=== PATIENT | female | born 1970 | race Caucasian/White ===

== ENCOUNTER → 2016-06-02 | Outpatient (CLI) | payer OTHER ==
[~2016-06-02] MED LIST: LANSO30 PO/TUBE; PROZ40CA PO
[2016-06-02 17:29] LABS: ALKALINE PHOSPHATASE 81 U/L (45-117); ALT (GPT) 25 U/L (10-53); ANION GAP 6 MEQ/L (5-15); AST (GOT) 16 U/L (15-37); BICARBONATE 28.6 MEQ/L (21.0-32.0); BLOOD UREA NITROGEN 12 MG/DL (7-18); CHLORIDE 105 MEQ/L (98-107); GLOMERULAR FILTRATION RATE 62 ML/MIN (>89); HDL CHOLESTEROL 38.4 MG/DL (40.0-60.0); LDL CHOLESTEROL 47 MG/DL (0-99); POTASSIUM 3.6 MEQ/L (3.5-5.1); SODIUM (NA) 140 MEQ/L (136-145); TOTAL BILIRUBIN ADULT 0.2 MG/DL (0.2-1.0)
[2016-06-02 19:06] LABS: HEMOGLOBIN A1a 1.2 %; HEMOGLOBIN A1b 0.9 %; HEMOGLOBIN Ao 84.7 %; HEMOGLOBIN LA1C 2.1 %; HEMOGLOBIN P3 3.7 %
== END ==
LOC: PLAB 14:01
PROVIDERS: ATTEND Internal Medicine
DX: E11.9 Type 2 diabetes mellitus without complications (principal)
CPT/HCPCS: 80053; 80061; 83036

== ENCOUNTER → 2016-12-23 | Outpatient (CLI) | payer OTHER ==
[2016-12-23 13:12] LABS: BLOOD, URINE NEG (NEG); GLUCOSE,URINE 1000 mg/dL (NEG); KETONE, URINE NEG (NEG); NITRITE,URINE NEG (NEG); PH, URINE 6.5 (5.0-8.5); SQUAMOUS EPITHELIAL CELL URINE <1 /hpf (0-5); URINE COLOR YELLOW (YELLW/STRAW)
[2016-12-23 13:13] LABS: COMMENT (UR) CULT NOT INDICATED; CULTURE IF INDICATED CULT NOT INDICATED
[2016-12-23 13:14] LABS: AUTOMATED NEUTROPHIL # 2.7 TH/MM3 (1.8-7.7); BASOPHIL % 0.8 % (0.0-2.0); EOSINOPHIL # 0.2 TH/MM3 (0-0.4); EOSINOPHIL % 3.3 % (0.0-4.0); HEMATOCRIT 41.9 % (35.0-46.0); HEMO FLAGS DIFF FINAL; LYMPH % 29.9 % (9.0-44.0); LYMPHOCYTE # 1.4 TH/MM3 (1.0-4.8); MEAN CELL VOLUME 88.6 FL (80.0-100.0); MEAN CORPUSCULAR HEMOGLOBIN 29.8 PG (27.0-34.0); MEAN CORPUSCULAR HGB CONC 33.6 % (32.0-36.0); MONO % 7.8 % (0.0-8.0); NEUT % 58.2 % (16.0-70.0); PLATELET COUNT 360 TH/MM3 (150-450); RED BLOOD COUNT 4.72 MIL/MM3 (4.00-5.30); RED CELL DISTRIBUTION WIDTH 13.8 % (11.6-17.2); WHITE BLOOD COUNT 4.7 TH/MM3 (4.0-11.0)
[2016-12-23 13:40] LABS: ANION GAP 7 MEQ/L (5-15); AST (GOT) 14 U/L (15-37); BLOOD UREA NITROGEN 12 MG/DL (7-18); CHLORIDE 106 MEQ/L (98-107); GLOMERULAR FILTRATION RATE 67 ML/MIN (>89); GLUCOSE,FASTING 100 MG/DL (74-99); POTASSIUM 4.5 MEQ/L (3.5-5.1); SODIUM (NA) 139 MEQ/L (136-145)
[2016-12-23 13:51] LABS: ALKALINE PHOSPHATASE 84 U/L (45-117); ALT (GPT) 24 U/L (10-53); HDL CHOLESTEROL 54.2 MG/DL (40.0-60.0); LDL CHOLESTEROL 99 MG/DL (0-99); TOTAL BILIRUBIN ADULT 0.3 MG/DL (0.2-1.0)
[2016-12-23 15:01] LABS: MICRO ALBUMIN RANDOM URINE RAW 8.4 MG/L (0.0-30.0)
[2016-12-23 16:50] LABS: HEMOGLOBIN A1a 1.2 %; HEMOGLOBIN A1b 0.9 %; HEMOGLOBIN Ao 84.9 %; HEMOGLOBIN LA1C 2.2 %; HEMOGLOBIN P3 3.7 %
== END ==
LOC: PLAB 08:38
PROVIDERS: ATTEND Internal Medicine
DX: E11.9 Type 2 diabetes mellitus without complications (principal); I10 Essential (primary) hypertension
CPT/HCPCS: 80053; 80061; 81001; 82043; 83036; 84443; 85025

== ENCOUNTER → 2017-06-16 | Outpatient (CLI) | payer OTHER ==
[~2017-06-16] MED LIST changes: +CLIN300C5 PO; +EMPA1TAB PO; +LIPI10TA PO
[2017-06-16 10:18] LABS: AUTOMATED NEUTROPHIL # 2.9 TH/MM3 (1.8-7.7); BASOPHIL % 0.6 % (0.0-2.0); EOSINOPHIL # 0.1 TH/MM3 (0-0.4); EOSINOPHIL % 2.8 % (0.0-4.0); HEMOGLOBIN 13.6 GM/DL (11.6-15.3); LYMPH % 30.5 % (9.0-44.0); LYMPHOCYTE # 1.5 TH/MM3 (1.0-4.8); MEAN CELL VOLUME 87.9 FL (80.0-100.0); MEAN CORPUSCULAR HEMOGLOBIN 29.1 PG (27.0-34.0); MEAN CORPUSCULAR HGB CONC 33.1 % (32.0-36.0); MEAN PLATELET VOLUME 7.7 FL (7.0-11.0); MONO % 7.5 % (0.0-8.0); MONOCYTE # 0.4 TH/MM3 (0-0.9); NEUT % 58.6 % (16.0-70.0); PLATELET COUNT 337 TH/MM3 (150-450); RED BLOOD COUNT 4.67 MIL/MM3 (4.00-5.30); RED CELL DISTRIBUTION WIDTH 13.7 % (11.6-17.2)
[2017-06-16 10:30] LABS: ALBUMIN 3.5 GM/DL (3.4-5.0); ALT (GPT) 24 U/L (10-53); AST (GOT) 20 U/L (15-37); BICARBONATE 25.8 MEQ/L (21.0-32.0); BLOOD UREA NITROGEN 13 MG/DL (7-18); CALCIUM 8.3 MG/DL (8.5-10.1); CHLORIDE 105 MEQ/L (98-107); CHOLESTEROL 147 MG/DL (120-200); CREATININE 0.84 MG/DL (0.50-1.00); GLOMERULAR FILTRATION RATE 73 ML/MIN (>89); GLUCOSE,FASTING 139 MG/DL (74-99); SODIUM (NA) 138 MEQ/L (136-145)
[2017-06-16 10:41] LABS: ALKALINE PHOSPHATASE 61 U/L (45-117); CHOLESTEROL/ HDL RATIO 3.55 RATIO; HDL CHOLESTEROL 41.4 MG/DL (40.0-60.0); LDL CHOLESTEROL 78 MG/DL (0-99); TOTAL BILIRUBIN ADULT 0.5 MG/DL (0.2-1.0); TOTAL PROTEIN 7.2 GM/DL (6.4-8.2); TRIGLYCERIDES 137 MG/DL (42-150)
[2017-06-17 21:11] LABS: HEMOGLOBIN A1C 5.7 % (4.3-6.0)
== END ==
LOC: PLAB 08:27
PROVIDERS: ATTEND Internal Medicine
DX: E11.9 Type 2 diabetes mellitus without complications (principal); E03.9 Hypothyroidism, unspecified; R53.83 Other fatigue
CPT/HCPCS: 36415; 80053; 80061; 83036; 84443; 85025

== ENCOUNTER 2017-06-21 18:49 | Emergency (ER) | payer OTHER ==
[~2017-06-21] VITALS: Ht 175.3 cm; Wt 90.4 kg
[~2017-06-21 18:49] MED LIST changes: -CLIN300C5 PO; -EMPA1TAB PO; -LIPI10TA PO
[2017-06-21 19:09] VITALS: BP 124/70; PULSE 98; RESP 16; TEMP 98.7; O2SAT 96
[2017-06-21] MEDS ORDERED: LIPI10TA PO (19:16)
[2017-06-21] MEDS ORDERED: PROZ40CA PO (19:16)
[2017-06-21] MEDS ORDERED: EMPA1TAB PO (19:16)
[2017-06-21] MEDS ORDERED: CLINDAMYCIN 150 MG CAP PO ONE (20:00)
[2017-06-21] MEDS ORDERED: CLIN300C5 PO (20:01)
--- NOTE | 2017-06-21 20:01 | PD ---
HPI Chief Complaint: Skin Problem Time Seen by Provider: 19:43 Travel History International Travel<30 days: No Contact w/Intl Traveler<30days: No Traveled to known affect area: No History of Present Illness HPI This is a 47-year-old female with possible abscess to her left chin 3 days. She denies fever chills. She reports the area started out as a pimple and became increasingly more swollen and painful. No difficulty swelling or fullness in throat. No drainage from the site. Symptom severity is moderate. No aggravating or alleviating factors. PFSH Past Medical History Anxiety: Yes Depression: Yes High Cholesterol: Yes Diabetes: Yes Patient Takes Glucophage: No Diminished Hearing: Yes (SLIGHT) GERD: Yes Immunizations Current: Yes Tetanus Vaccination: Unknown Influenza Vaccination: Yes ?: Not Miscarriage: 1 Past Surgical History Other Surgery: Yes (EXPL LAP ABD (NOTHING ABNORMAL FOUND)) Social History Alcohol Use: Yes (SOCIALLY RARELY) Tobacco Use: No (QUIT 5YRS AGO; SMOKED 2PPD X 12YRS) Substance Use: No Allergies-Medications (Allergen,Severity, Reaction): Coded Allergies: iodine (Verified Allergy, Severe, 06/21/17) potassium iodide (Verified Allergy, Severe, 06/21/17) povidone-iodine (Verified Allergy, Severe, 06/21/17) sodium iodide (Verified Allergy, Severe, 06/21/17) sodium iodide (Verified Allergy, Severe, 06/21/17) *MDRO Multi-Drug Resistant Organism (Verified Allergy, Unknown, 06/21/17) MRSA 2013 Reported Meds & Prescriptions Reported Meds & Active Scripts Active Reported Lipitor (Atorvastatin Calcium) 10 Mg Tab 10 Mg PO HS Prozac (Fluoxetine HCl) 40 Mg Cap 40 Mg PO DAILY Jardiance (Empagliflozin) 10 Mg Tab 15 Mg PO DAILY Review of Systems Except as stated in HPI: all other systems reviewed are Neg General / Constitutional: No: Fever Eyes: No: Visual changes HENT: No: Headaches Cardiovascular: No: Chest Pain or Discomfort Respiratory: No: Shortness of Breath Gastrointestinal: No: Abdominal Pain Genitourinary: No: Dysuria Physical Exam Narrative GENERAL: Alert and well-appearing 47-year-old female SKIN: Warm and dry. HEAD: Normocephalic. Notable swelling, induration, erythema measuring 3-1/2 cm in diameter to the left chin extending slightly below the jawline. The area is nonfluctuant. EYES: No injection or drainage. MOUTH: Gums appear healthy without evidence of infection. No swelling of the floor the mouth. Uvula is midline. Airways patent. NECK: Supple, trachea midline. No lymphadenopathy. No neck mass. CARDIOVASCULAR: Regular rate and rhythm. RESPIRATORY: Breath sounds equal bilaterally. No accessory muscle use. Data Data Last Documented VS Vital Signs Date Time Temp Pulse Resp B/P (MAP) Pulse Ox O2 Delivery O2 Flow Rate FiO2 06/21/17 19:09 98.7 98 16 124/70 (88) 96 Orders Orders Clindamycin (Cleocin) (06/21/17 20:00) MDM Medical Decision Making Medical Screen Exam Complete: Yes Emergency Medical Condition: Yes Differential Diagnosis Abscess, cellulitis, folliculitis Narrative Course This is a 47-year-old female with an abscess to her left jawline. The area is indurated without fluctuance. She is nontoxic appearing. No oral airway involvement. She will be started on clindamycin with strict return precautions. The patient sent verbalizes understanding and agrees to plan Diagnosis Primary Impression: Facial cellulitis Referrals: Primary Care Physician Additional Instructions: Antibiotics as directed. Apply warm compresses. Tylenol or ibuprofen for pain. Return if you have new or worsening symptoms. Scripts Clindamycin (Clindamycin) 300 Mg Cap 300 MG PO Q6H for Infection for 10 Days, #40 CAP 0 Refills Prov: Janie Mackay 06/21/17 Disposition: 01 DISCHARGE HOME Condition: Stable Janie Mackay Jun 21, 2017 20:01
== END 2017-06-21 20:12 | disposition home or self-care (01) ==
LOC: PHEFT 18:49
DX: L03.211 Cellulitis of face (principal); F41.9 Anxiety disorder, unspecified; F32.9 Major depressive disorder, single episode, unspecified; E78.00 Pure hypercholesterolemia, unspecified; E11.9 Type 2 diabetes mellitus without complications; K21.9 Gastro-esophageal reflux disease without esophagitis; Z79.899 Other long term (current) drug therapy
CPT/HCPCS: 99283

== ENCOUNTER 2017-06-23 15:06 | Emergency (ER) | payer OTHER ==
[~2017-06-23] VITALS: Ht 170.2 cm; Wt 90.2 kg
[~2017-06-23 15:06] MED LIST changes: +CLIN300C5 PO; +EMPA1TAB PO; +LIPI10TA PO
[2017-06-23 15:15] VITALS: BP 126/77; PULSE 90; RESP 18; TEMP 98.8; O2SAT 97
[2017-06-23] MEDS ORDERED: LIDOCAINE HCL 1% PF 30 ML VIAL INFIL ONE (15:30)
--- NOTE | 2017-06-23 16:15 | PD ---
HPI Chief Complaint: Wound/Suture/Staple Re-Check Time Seen by Provider: 15:23 Travel History International Travel<30 days: No Contact w/Intl Traveler<30days: No Traveled to known affect area: No History of Present Illness HPI 47-year-old female presents to the ED for wound evaluation. Patient states that she was seen 2 days ago diagnosed with abscess, provided with antibiotics. She states that despite compliance with antibiotics the area under the chin has continued to swell, become reddened and very tender. She denies any dental problems. She denies fevers, chills, nausea, vomiting. She treated with warm compresses as well with no improvement. She endorses 7/10 pain in the area, worsened by movement and touch. No alleviating factors reported. PFSH Past Medical History Anxiety: Yes Depression: Yes High Cholesterol: Yes Diabetes: Yes Patient Takes Glucophage: No Diminished Hearing: Yes (SLIGHT) GERD: Yes Immunizations Current: Yes Influenza Vaccination: Yes ?: Not Miscarriage: 1 Past Surgical History Gynecologic Surgery: Yes (Ablation) Other Surgery: Yes (EXPL LAP ABD (NOTHING ABNORMAL FOUND)) Social History Alcohol Use: Yes (SOCIALLY RARELY) Tobacco Use: No (QUIT 5YRS AGO; SMOKED 2PPD X 12YRS) Substance Use: No Allergies-Medications (Allergen,Severity, Reaction): Coded Allergies: iodine (Verified Allergy, Severe, 06/23/17) potassium iodide (Verified Allergy, Severe, 06/23/17) povidone-iodine (Verified Allergy, Severe, 06/23/17) sodium iodide (Verified Allergy, Severe, 06/23/17) sodium iodide (Verified Allergy, Severe, 06/23/17) *MDRO Multi-Drug Resistant Organism (Verified Allergy, Unknown, 06/23/17) MRSA 2013 Reported Meds & Prescriptions Reported Meds & Active Scripts Active Ibuprofen 600 Mg Tab 600 Mg PO Q8H PRN Clindamycin (Clindamycin HCl) 300 Mg Cap 300 Mg PO Q6H 10 Days Reported Lipitor (Atorvastatin Calcium) 10 Mg Tab 10 Mg PO HS Prozac (Fluoxetine HCl) 40 Mg Cap 40 Mg PO DAILY Jardiance (Empagliflozin) 10 Mg Tab 15 Mg PO DAILY Review of Systems Except as stated in HPI: all other systems reviewed are Neg Physical Exam Narrative GENERAL: Well-nourished, well-developed white female in no acute distress. SKIN: There is an indurated area in the just left of midline of the mandible which measures about 6 cm in diameter. It is fluctuant but there is no pointing or drainage. There is a zone of inflammation around it but no lymphangitis. SKIN: Warm and dry. HEAD: Normocephalic. Atraumatic. EYES: No scleral icterus. No injection or drainage. PERRLA. EOMI. ENT: Pearly cerda tympanic membranes bilaterally. Nasal mucosa is moist. Oropharynx without erythema, edema or exudate. NECK: Supple, trachea midline. No JVD or lymphadenopathy. CARDIOVASCULAR: Regular rate and rhythm without murmurs, gallops, or rubs. RESPIRATORY: Breath sounds clear and equal bilaterally. No accessory muscle use. GASTROINTESTINAL: Abdomen soft, non-tender, nondistended. + Bowel sounds MUSCULOSKELETAL: No cyanosis, or edema. BACK: Nontender without obvious deformity. No CVA tenderness. Data Data Last Documented VS Vital Signs Date Time Temp Pulse Resp B/P (MAP) Pulse Ox O2 Delivery O2 Flow Rate FiO2 06/23/17 15:15 98.8 90 18 126/77 (93) 97 Orders Orders Lidocaine Pf 1% Inj (Xylocaine-Mpf 1% In (06/23/17 15:30) Abscess Culture And Gram Stain (06/23/17 15:26) Ed Discharge Order (06/23/17 16:16) [facility] Medical Decision Making Medical Screen Exam Complete: Yes Emergency Medical Condition: Yes Differential Diagnosis Abscess versus cellulitis versus parotiditis versus other Narrative Course 47-year-old female presents to the ED for evaluation of left-sided facial abscess. Patient was seen 2 days ago, provided with antibiotics. She states that despite compliance with antibiotics, symptoms have worsened. On exam there is a large abscess just left of midline below the mandible. Abscess I&D was performed. Please see my procedure note for details. Patient was given detailed wound care instructions, instructed to continue with antibiotics, follow with the primary care provider, return for worsening symptoms. She indicated understanding of the instructions and is agreeable to care plan. The patient is stable and discharged home. Procedures Procedure Narrative INCISION AND DRAINAGE OF ABSCESS: The area was prepped and was sterilely draped. A subcutaneous wheal of 1% Xylocaine with a total number 3 mL was used to anesthetize the area properly. A number 11 scalpel was used to make a 0.75- cm incision across the area of the abscess. The abscess was drained, complex loculations were broken down, and irrigated with normal saline. Cultures were obtained. Sterile dressing applied. Patient advised to keep the wound clean and dry. Diagnosis Primary Impression: Cutaneous abscess of face Referrals: Primary Care Physician Patient Instructions: Abscess Follow-up (ED), Abscess Incision and Drainage (DC ), General Instructions Departure Forms: Tests/Procedures, Work Release Enter return to work date: Jun 26, 2017 Additional Instructions: Keep your wound clean, dry and covered. Continue with antibiotics as previously prescribed. Warm compresses applied to the area a few times a day may help to improve your symptoms. 600 mg ibuprofen 3 times a day will help to reduce pain and inflammation. Follow-up with the primary care provider. Return to the ED for worsening symptoms or any urgent or emergent medical condition. Scripts Ibuprofen (Ibuprofen) 600 Mg Tab 600 MG PO Q8H Y for PAIN, #15 TAB 0 Refills Prov: Brian Duron MD 06/23/17 Disposition: 01 DISCHARGE HOME Condition: Stable Shy Foy Jun 23, 2017 16:15
[2017-06-23] MEDS ORDERED: IBUP-232 PO (16:16)
== END 2017-06-23 16:24 | disposition home or self-care (01) ==
LOC: PHEFT 15:06
DX: L02.01 Cutaneous abscess of face (principal); A49.02 Methicillin resistant Staphylococcus aureus infection, unspecified site; F41.9 Anxiety disorder, unspecified; F32.9 Major depressive disorder, single episode, unspecified; E78.00 Pure hypercholesterolemia, unspecified; E11.9 Type 2 diabetes mellitus without complications; K21.9 Gastro-esophageal reflux disease without esophagitis; Z79.899 Other long term (current) drug therapy; Z88.8 Allergy status to other drugs, medicaments and biological substances
CPT/HCPCS: 10060; 86403; 87070; 87186; 87205